=== PATIENT | male | born 1960 | race Caucasian/White ===

== ENCOUNTER 2025-03-08 18:28 | Emergency (ER) | payer MEDICARE, BC ==
[2025-03-08 20:08] LABS: PLATELET COUNT, AUTOMATED 269 10^3/uL (150-450)
[2025-03-08] MEDS: NS 500 ML IV ONE (20:15)
[2025-03-08] MEDS: AMPICILLIN SOD/SULBACTAM SOD 3 GM in DEXTROSE 5% (D5W) MINI-BAG PLU 100 ML IV ONE (20:15)
[2025-03-08 20:17] LABS: CALCIUM LEVEL 9.4 MG/DL (8.3-10.6); CARBON DIOXIDE LEVEL 28 MMOL/L (20-31); CHLORIDE LEVEL 102 MMOL/L (98-107); CREATININE FOR GFR 0.83 MG/DL (0.70-1.30); GLOMERULAR FILTRATION RATE > 90.0 (>49); POTASSIUM SERUM 3.9 MMOL/L (3.5-5.1); SODIUM LEVEL 140 MMOL/L (136-145)
[2025-03-08] MEDS: MORPHINE 4 MG/ML 1 ML VIAL IV ONE (20:29)
[2025-03-08] MEDS: ONDANSETRON 4MG 2ML VIAL IV ONE (20:29)
[2025-03-08] MEDS: LIDOCAINE 2% MDV 20 ML VIAL SC ONE (20:55)
[2025-03-08] MEDS: cefTRIAXone SOD 2 GM in DEXTROSE 5% (D5W) ADV/MINI-BAG 50 ML IV ONE (21:09)
[2025-03-08] MEDS: TETANUS/DIPHTH/ACEL. PERTUSSIS 0.5 ML SYR IM.IMMUN ONE (21:10)
[2025-03-08 22:54] VITALS: BP 159/80; TEMP 98.1; O2SAT 98
== END 2025-03-08 22:55 | disposition short-term general hospital (02) ==
LOC: M ED 18:28
DX: S02.31XA Fracture of orbital floor, right side, initial encounter for closed fracture (principal); S01.111A Laceration without foreign body of right eyelid and periocular area, initial encounter; S05.21XA Ocular laceration and rupture with prolapse or loss of intraocular tissue, right eye, initial encounter; Y92.019 Unspecified place in single-family (private) house as the place of occurrence of the external cause; Y93.9 Activity, unspecified; Y99.9 Unspecified external cause status; W22.8XXA Striking against or struck by other objects, initial encounter; Z23 Encounter for immunization; Z88.1 Allergy status to other antibiotic agents; Z88.2 Allergy status to sulfonamides
CPT/HCPCS: 70450; 70486; 72125; 80048; 85027; 90471; 90715; 96361; 96365; 96372; 96375; 99285; J0696; J2405; J2550